=== PATIENT | male | born 1975 | race Two or more races ===

== ENCOUNTER 2024-12-17 11:25 | Outpatient (CLI) | payer OTHER ==
[2024-12-17 11:49] LABS: Hematocrit 45.7 % (41.0-53.0); Hemoglobin 15.4 g/dL (13.5-17.5); Mean Corpuscular Hemoglobin 29.7 pg (28.0-32.0); Mean Corpuscular Volume 88.4 fL (80.0-100.0); Nucleated Red Blood Cells % 0.0 %
[2024-12-17 13:10] LABS: Alkaline Phosphatase 58 U/L (46-116); Calcium 9.2 mg/dL (8.7-10.4); Carbon Dioxide 27 mmol/L (20-31); Chloride 104 mmol/L (98-107); Glucose 90 mg/dL (74-106); Potassium 4.6 mmol/L (3.5-5.1); Triglycerides 98 mg/dL (< 150)
[2024-12-17 13:11] LABS: Anion Gap 7 (5-15); BUN/Creatinine Ratio 12.6 (10.0-20.0); Blood Urea Nitrogen 11 mg/dL (9-23); Sodium 138 mmol/L (136-145); Total Protein 7.9 g/dL (5.7-8.2)
[2024-12-17 13:12] LABS: Alanine Aminotransferase 44 U/L (7-40); Albumin 4.4 g/dL (3.2-4.8); Cholesterol 145 mg/dL (< 200); HDL Cholesterol 30 mg/dL (40-59)
[2024-12-17 13:13] LABS: Bilirubin, Total 0.5 mg/dL (0.2-1.0)
== END 2024-12-19 17:00 | disposition home or self-care (01) ==
LOC: LAB 11:25
PROVIDERS: ATTEND Nurse Practitioner Family
DX: I10 Essential (primary) hypertension (principal); R73.03 Prediabetes; E55.9 Vitamin D deficiency, unspecified; Z00.00 Encounter for general adult medical examination without abnormal findings
CPT/HCPCS: 36415; 80053; 80061; 82043; 82306; 83036; 84443; 85025